=== PATIENT | female | born 1970 | race Caucasian/White ===

== ENCOUNTER 2022-12-21 15:23 | Emergency (ER) | payer OTHER, SELFPAY ==
[2022-12-21 15:32] VITALS: BP 120/65; PULSE 85; RESP 18; TEMP 37.1; O2SAT 96; BMI 28.2
--- NOTE | 2022-12-21 16:28 | ED.NURSE ---
Irrigated laceration with 250 cc warm normal saline.
--- NOTE | 2022-12-21 20:47 | ED.GENADULT ---
HPI - General Adult General Date Seen: 12/21/22 Chief complaint: Laceration/Wound Stated complaint: R leg laceration Time Seen by Provider: 12/21/22 16:02 Source: patient Mode of arrival: ambulatory Limitations: no limitations History of Present Illness HPI narrative: Patient is a 52-year-old woman who was trying to chop down and apple tree, she says the ax bounced off the tree and hit her right chakraborty. Bleeding is controlled. She says that she thought about fixing it with butterfly bandages at home but decided it was too deep. No numbness, loss of function or other complaints. Tetanus up-to-date. Related Data Home Medications Medication Instructions Recorded Confirmed No Known Home Medications 12/21/22 12/21/22 Allergies Allergy/AdvReac Type Severity Reaction Status Date / Time morphine AdvReac Severe Itching Verified 12/21/22 15:31 PFSH PFSH Social History Smoking Status: Never smoker How often do you have a drink containing alcohol: never AUDIT-C Alcohol total score: 0 Non-prescribed substance use: denies use service: Yes Exam Narrative: Exam Narrative: Vital signs reviewed In general, alert, well-appearing woman. Extremities: Examination of the right chakraborty shows a 5 cm laceration with a slight L shape to it distally. Bleeding is controlled, fat is exposed, no exposed bone. Distal CMS is normal. Const: Vital Signs, click to edit/add: Vital Signs - 24 hr 12/21/22 15:32 Temperature 98.8 F Pulse Rate [Pulse Oximeter] 85 Respiratory Rate 18 Blood Pressure [Ri ght Upper Arm] 120/65 Pulse Oximetry 96 Oxygen Delivery Me thod Room Air Documenting provider has reviewed patient's vital signs: yes Course Course ED Course: Procedure note: Wound was anesthetized using lidocaine with epinephrine and then irrigated with saline. Explored, no evidence of foreign body or injury to deeper structures. I closed it using 4 0 nylon. I used a combination of horizontal mattress and simple interrupted sutures. She tolerated this well with good closure, no significant tension to the wound. Dressing was applied by the tech. Suture removal should be in about 10 days. Return for any signs of infection. Ibuprofen or Tylenol as needed, ice, elevate as able. Vital Signs Vital signs: Initial Vital Signs Temperature 98.8 F 12/21/22 15:32 Temperature Source Temporal Artery Scan 12/21/22 15:32 Pulse Rate 85 12/21/22 15:32 Respiratory Rate 18 12/21/22 15:32 Blood Pressure 120/65 12/21/22 15:32 Blood Pressure Mean 83 12/21/22 15:32 Blood Pressure Position Supine 12/21/22 15:32 Pulse Oximetry 96 12/21/22 15:32 Oxygen Delivery Method Room Air 12/21/22 15:32 Vital Signs Temperature 98.8 F 12/21/22 15:32 Pulse Rate 85 12/21/22 15:32 Respiratory Rate 18 12/21/22 15:32 Blood Pressure 120/65 12/21/22 15:32 Pulse Oximetry 96 12/21/22 15:32 Oxygen Delivery Method Room Air 12/21/22 15:32 Temperature 98.8 F 12/21/22 15:32 Pulse Rate 85 12/21/22 15:32 Respiratory Rate 18 12/21/22 15:32 Blood Pressure 120/65 12/21/22 15:32 Pulse Oximetry 96 12/21/22 15:32 Oxygen Delivery Method Room Air 12/21/22 15:32 Discharge Plan Discharge Clinical Impression: Laceration of right lower extremity Patient Disposition: Home, Self-Care Condition: Improved Instructions: Laceration (ED) Additional Instructions: Suture removal in about 10 days. Return for signs of infection. Keep an ointment such as Vaseline on the wound while it heals. Prescriptions: No Action No Known Home Medications Follow Up/Referrals: Gia Verduzco PA-C [Primary Care Provider] - Stand Alone Forms: [facility] Info Instructions
== END 2022-12-21 17:08 | disposition home or self-care (01) ==
PROVIDERS: Emergency Provider Emergency Medicine; PCP Physician Assistant Medical
DX: S81.811A Laceration without foreign body, right lower leg, initial encounter (principal); W20.8XXA Other cause of strike by thrown, projected or falling object, initial encounter
CPT/HCPCS: 12002; 99283; 99284

== ENCOUNTER 2023-11-30 14:31 | Emergency (ER) | payer OTHER, SELFPAY ==
[2023-11-30 14:38] VITALS: BP 120/73; PULSE 92; RESP 20; TEMP 37.6; O2SAT 99; BMI 29.0
--- NOTE | 2023-11-30 14:43 | ED.GENADULT ---
HPI - General Adult General Date Seen: 11/30/23 Chief complaint: Laceration/Wound Stated complaint: L thumb laceration Time Seen by Provider: 11/30/23 14:42 History of Present Illness HPI narrative: 53-year-old generally healthy female presenting to the ER today with a power tool related left thumb injury. She is generally healthy. She is up-to-date with tetanus (1 year ago). She has no history of immunosuppression or diabetes. She was she cut her left thumb on a router blade. She was using a handheld router with a flushed trimmed bit on it when the router suddenly jumped off the wood and struck her in the dorsum of her left hand on the dorsum of the thumb MCP joint. She suffered a fairly long, Y laceration roughly 3 cm in length and 1 cm or more in with. She has had a lot of pain in left thumb. She is unable to extend her MCP joint. She was able to control the bleeding very easily by direct pressure. No numbness in her thumb. She came directly here to the ER. No other injuries. Related Data Previous Rx's ?Medication ?Instructions ?Recorded amoxicillin 500 mg capsule 1,000 mg (2 x 500 mg) PO BID #20 11/30/23 caps hydrocodone 5 mg-acetaminophen 325 1 tab PO Q4-6H PRN pain #10 tabs 11/30/23 mg tablet Allergies Allergy/AdvReac Type Severity Reaction Status Date / Time morphine AdvReac Severe Itching Verified 12/21/22 15:31 cephalexin AdvReac Intermediate Gastrointestinal Verified 11/30/23 14:45 Upset PFSH PFSH Social History Smoking Status: Never smoker How often do you have a drink containing alcohol: never AUDIT-C Alcohol total score: 0 Non-prescribed substance use: denies use service: Yes Exam Narrative: Exam Narrative: Constitutional: Appears well-developed and well-nourished. Polite. Non-toxic appearing. HENT: Head: Atraumatic. No signs of injury. Nose: No nasal discharge. Mouth/Throat: Mucous membranes are moist. Pharynx is normal. Tonsils symmetric. Uvula midline. Airway patent. Eyes: Conjunctivae normal and EOM are normal. Pupils are equal, round, and reactive to light. Right eye exhibits no discharge. Left eye exhibits no discharge. No icterus. Neck: Normal range of motion. Neck supple. No adenopathy. No stridor. Cardiovascular: Normal rate and regular rhythm. No murmur heard. No murmurs, rubs, or gallops. Brisk capillary refill Pulmonary/Chest: Effort normal. No stridor. No respiratory distress. No wheezes.No rhonchi. No rales. No retractions. Abdominal: Soft. Bowel sounds are normal. No distension. No mass. There is no tenderness. There is no rebound and no guarding. Musculoskeletal: Normal except for her left thumb- Normal range of motion. No edema. No tenderness. No deformity. Left upper extremity: Shoulder, humerus, elbow, forearm, wrist are uninjured. Digits 2-5 are uninjured. The she has a macerated irregularly shaped laceration measuring about 1 x 3 cm on the dorsum of the left thumb which extends from just proximal to the MCP joint diagonally distally onto the dorsum of the skin overlying the proximal phalanges. She has intact radial and ulnar are digital nerve sensory function distally. Normal distal cap refill. No active bleeding. No pulsatile bleeding. She is not able to extend her MCP joint. No lacerations on the palmar surface. Neurological: Alert. Normal strength. No cranial nerve deficit or sensory deficit. Coordination normal. GCS eye subscore is 4. GCS verbal subscore is 5. GCS motor subscore is 6. Skin: Skin is warm. No rash noted. Const: Vital Signs, click to edit/add: Vital Signs - 24 hr 11/30/23 14:38 Temperature 99.7 F H Pulse Rate [Pulse Oximeter] 92 Respiratory Rate 20 Blood Pressure [Ri t Upper Arm] 120/73 Pulse Oximetry 99 Oxygen Delivery Me thod Room Air Course Vital Signs Vital signs: Initial Vital Signs Temperature 99.7 F H 11/30/23 14:38 Temperature Source Temporal Artery Scan 11/30/23 14:38 Pulse Rate 92 11/30/23 14:38 Respiratory Rate 20 11/30/23 14:38 Blood Pressure 120/73 11/30/23 14:38 Blood Pressure Mean 88 11/30/23 14:38 Pulse Oximetry 99 11/30/23 14:38 Oxygen Delivery Method Room Air 11/30/23 14:38 Vital Signs Temperature 99.7 F H 11/30/23 14:38 Pulse Rate 92 11/30/23 14:38 Respiratory Rate 20 11/30/23 14:38 Blood Pressure 120/73 11/30/23 14:38 Pulse Oximetry 99 11/30/23 14:38 Oxygen Delivery Method Room Air 11/30/23 14:38 Temperature 99.7 F H 11/30/23 14:38 Pulse Rate 92 11/30/23 14:38 Respiratory Rate 20 11/30/23 14:38 Blood Pressure 120/73 11/30/23 14:38 Pulse Oximetry 99 11/30/23 14:38 Oxygen Delivery Method Room Air 11/30/23 14:38 Medications Administered Medications: Discontinued Medications Generic Name Dose Route Start Last Admin Trade Name Freq PRN Reason Stop Dose Admin Amoxicillin 1,000 mg 11/30/23 17:40 11/30/23 17:56 Amoxicillin 250 Mg Capsule PO 11/30/23 17:41 1,000 mg ONCE ONE Administration Medical Decision Making MDM Narrative Medical decision making narrative: 53-year-old generally healthy female presenting to the ER today with a complex wound to the dorsum of her left thumb. She suffered at home today while working with a power tool ( router). She is not diabetic or immunosuppressed. Tetanus is up-to-date. This is a complex wound with macerated skin edges. There was some nonviable material which we debrided here in the ER. We were able to close the skin over the wound and cover the deeper structures. Digital nerves are intact. Distally the digit is well perfused. No vascular compromise. She has an extensor tendon injury. I have able to visualize a macerated part of 1 into the extensor tendon but not the other read. Suspicion is that the tendon is either retracted or a section of it may have been destroyed by the router. Patient will need orthopedic care and tendon repair. I contacted Orthopedics here in [place]. They recommended transfer to Ortho Hand because she may need grafting. Discussed this with the patient and her . They are unsure about which ortho clinically like to go to. We discussed [facility] such as [place] [place] [place], as well as outpatient Orthopedic Clinic such [facility] or [facility]. We also discussed [facility]. They are not sure which surgeon may be in their insurance network. They tried to call their insurance company to find up with their turns company is closed for the evening. Ultimately we settled on male. I contacted the [facility] transfer center. Discussed the case with the on-call orthopedist Dr. Millard. He and I had a very complete healed discussion. He he is able to see the patient or 1 of his partners will, in the clinic on Tuesday, 2 days from now. They have or time on Tuesday and will likely be able to do the tendon repair that day. [facility] will contact the patient on her cell phone tomorrow to set up a specific appointment time. Between now and her orthopedic clinic we will start the patient on prophylactic antibiotics. Has had previous adverse reactions cephalexin so we put her on amoxicillin. Antibiotic ointment and splint and dressing applied here. She will keep the splint and dressing in place until ortho visit in 2 days. Prophylactic antibiotics with amoxicillin Pain control with [id number] meds 1st and [place] for breakthrough pain. Imaging Data XR thumb: Attestation: I have reviewed the pertinent imaging results. Radiologist's impression: Findings and impression: No acute fracture or dislocation. 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 Laceration along the 1st digit with soft tissue swelling. Discharge Plan Discharge Clinical Impression: Laceration of thumb, Injury of extensor tendon of left hand Patient Disposition: Home, Self-Care Condition: Stable Instructions: Finger Laceration (ED), Tendon Laceration (ED) Additional Instructions: Please keep your dressing and splint in place and keep your wound covered and clean and dry until you see the hand surgeons at [facility] on Tuesday. If you have bleeding that soaked through your dressing, worsening or uncontrolled pain, fever or chills, or any problems, come back to the ER right away to be rechecked. You should receive a phone call tomorrow from the Hand surgery team at [facility] to schedule a appointment time on Tuesday. Please bring a diesel pile driver operator with you to [facility] for your appointment on Tuesday because they may be able to do the surgical repair that day. Start on the preventative antibiotics (amoxicillin) and use it as needed. To treat the pain, use Tylenol or ibuprofen if needed. You can add on the prescription pain killer (hydrocodone) if needed for pain uncontrolled by other meds. Be careful of hydrocodone because it causes dizziness, drowsiness, constipation, and can be addictive. Do not drive for 6 hours after you take hydrocodone. Prescriptions: New hydrocodone-acetaminophen 5-325 mg tablet 1 tab PO Q4-6H PRN (Reason: pain) Qty: 10 0RF amoxicillin 500 mg capsule 1,000 mg PO BID Qty: 20 0RF Follow Up/Referrals: Gia Verduzco PA-C [Primary Care Provider] - Stand Alone Forms: [facility] Info Instructions Procedures Laceration Left thumb laceration: Pre procedure diagnosis: Complex left thumb laceration Verification/time out: correct patient and correct site Site: hand (Dorsum of left thumb. 1 x 3 cm gaping a macerated laceration. Proximal and is on the dorsum of the metacarpal. Laceration X stents distally and diagonally across the dorsum of the thumb crossing the MCP joint and ending on the radial aspect of the proximal phalanges. Wound edges are macerated. ) Side (If applicable): left (Extensor tendon injury. She is unable to extend her MCP or IP joint on the thumb. Flexor tendons are intact. Ulnar and radial digital nerves intact. No arterial bleeding.) Size (cm): 3 Description: irregular Depth: simple, single layer Local Anesthetic: bupivacaine 0.25% (A digital block and local infiltration) Amount of anesthesia used (mL): 6 Pre-repair: wound explored and irrigated extensively Skin layer closed with: nylon Size (cm): 5-0 Number of sutures: 5 Technique: simple, interrupted (The wound edges are complex and macerated. There is some devitalized flaps of small skin that were removed. There other large flaps that are dusky but may be viable. I tried to keep the larger flaps in place did to it preserved enough tissue to close the wound edges. I loosely approximated the w)
--- NOTE | 2023-11-30 14:49 | CRLHL7_ITS ---
For Patients: As a result of the Cures Act, medical imaging exams and procedure reports are released immediately into your electronic medical record. You may view this report before your referring provider. If you have questions, please contact your health care provider. Indication: Dorsal laceration from power tool Technique: Left 1st digit, three views Comparison: None. Findings and impression: No acute fracture or dislocation. 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 Laceration along the 1st digit with soft tissue swelling. Dictated by Nicol Alberto MD @ 11/30/2023 3:31:35 PM (Electronically Signed)
[2023-11-30] MEDS: AMOXICILLIN 250 MG CAPSULE 1000 MG PO (17:56)
== END 2023-11-30 18:03 | disposition home or self-care (01) ==
PROVIDERS: Emergency Provider Emergency Medicine; PCP Physician Assistant Medical
DX: S61.012A Laceration without foreign body of left thumb without damage to nail, initial encounter (principal); S66.222A Laceration of extensor muscle, fascia and tendon of left thumb at wrist and hand level, initial encounter; W29.8XXA Contact with other powered hand tools and household machinery, initial encounter
CPT/HCPCS: 73140; 99283; 99284; A9270